=== PATIENT | female | born 1995 | race Two or more races ===

== ENCOUNTER 2023-04-02 16:25 | Emergency (ER) | payer OTHER ==
[~2023-04-02] VITALS: Ht 167.6 cm; Wt 81.6 kg
== END 2023-04-02 18:00 | disposition home or self-care (01) ==
LOC: ER 16:25
DX: J10.1 Influenza due to other identified influenza virus with other respiratory manifestations (principal); Z20.822 Contact with and (suspected) exposure to COVID-19

== ENCOUNTER 2023-04-20 11:42 | Emergency (ER) | payer OTHER ==
[~2023-04-20] VITALS: Ht 167.6 cm; Wt 86.2 kg
== END 2023-04-20 19:09 | disposition home or self-care (01) ==
LOC: ER 11:42
PROVIDERS: Nurse Practitioner Family
DX: M62.830 Muscle spasm of back (principal); M54.50 Low back pain, unspecified; N20.0 Calculus of kidney

== ENCOUNTER 2023-08-03 10:52 | Emergency (ER) | payer OTHER ==
[~2023-08-03] VITALS: Ht 167.6 cm; Wt 74.8 kg
== END 2023-08-03 12:51 | disposition home or self-care (01) ==
LOC: ER 10:53
DX: J03.80 Acute tonsillitis due to other specified organisms (principal); B96.89 Other specified bacterial agents as the cause of diseases classified elsewhere; Z20.822 Contact with and (suspected) exposure to COVID-19

== ENCOUNTER 2023-11-29 18:53 | Emergency (ER) | payer OTHER ==
[~2023-11-29] VITALS: Ht 170.2 cm; Wt 85.3 kg
[2023-11-29 21:50] LABS: HEMATOCRIT 36.8 % (36.0-45.00); HEMOGLOBIN 12.6 g/dL (12.0-15.00); MEAN CELL VOLUME 85.1 fL (80.00-100.00); MEAN CORPUSCULAR HEMOGLOBIN 29.1 pg (27.00-32.0); MEAN CORPUSCULAR HGB CONC 34.2 g/dl (32.0-36.0); PLATELET COUNT 261 K/uL (150-450); RED BLOOD COUNT 4.32 M/uL (4.00-6.00); RED CELL DISTRIBUTION WIDTH 13.5 % (11.5-14.5)
== END 2023-11-29 22:46 | disposition home or self-care (01) ==
LOC: ER 18:59
PROVIDERS: General Practice
DX: J06.9 Acute upper respiratory infection, unspecified (principal); Z20.822 Contact with and (suspected) exposure to COVID-19

== ENCOUNTER 2024-03-04 15:38 | Emergency (ER) | payer OTHER ==
[~2024-03-04] VITALS: Ht 170.2 cm; Wt 87.5 kg
[~2024-03-04 15:38] MED LIST: DICLOFENAC SODI75 MG PO; TUSNEL LIQUID178 ML PO
[2024-03-04] MEDS ORDERED: ORPHENADRINE CITRATE 30 MG/ML AMPUL IM ONE (18:15)
== END 2024-03-04 18:32 | disposition home or self-care (01) ==
LOC: ER 15:38
DX: S80.02XA Contusion of left knee, initial encounter (principal); S80.01XA Contusion of right knee, initial encounter; V19.9XXA Pedal cyclist (driver) (passenger) injured in unspecified traffic accident, initial encounter; Y93.89 Activity, other specified; Y92.89 Other specified places as the place of occurrence of the external cause; Y99.9 Unspecified external cause status

== ENCOUNTER → 2024-08-17 | Emergency (ER) | payer OTHER ==
[~2024-08-17] VITALS: Ht 170.2 cm; Wt 86.2 kg
== END | disposition left against medical advice (07) ==
LOC: ER 03:20
DX: Z53.21 Procedure and treatment not carried out due to patient leaving prior to being seen by health care provider (principal)

== ENCOUNTER → 2024-08-29 | Emergency (ER) | payer OTHER ==
[~2024-08-29] VITALS: Ht 170.2 cm; Wt 86.2 kg
[2024-08-29 09:30] LABS: HEMATOCRIT 35.5 % (36.0-45.00); HEMOGLOBIN 12.3 g/dL (12.0-15.00); MEAN CELL VOLUME 84.9 fL (80.00-100.00); MEAN CORPUSCULAR HEMOGLOBIN 29.3 pg (27.00-32.0); MEAN CORPUSCULAR HGB CONC 34.5 g/dl (32.0-36.0); PLATELET COUNT 258 K/uL (150-450); RED BLOOD COUNT 4.19 M/uL (4.00-6.00); RED CELL DISTRIBUTION WIDTH 13.9 % (11.5-14.5)
== END | disposition home or self-care (01) ==
LOC: ER 08:15
PROVIDERS: General Practice
DX: J10.1 Influenza due to other identified influenza virus with other respiratory manifestations (principal); Z20.822 Contact with and (suspected) exposure to COVID-19

== ENCOUNTER 2024-10-28 14:48 | Emergency (ER) | payer OTHER ==
[~2024-10-28] VITALS: Ht 165.1 cm; Wt 87.5 kg
[2024-10-28] MEDS ORDERED: ONDANSETRON HCL 2 MG/ML VIAL IV STA (15:24)
[2024-10-28] MEDS ORDERED: 0.9 % SODIUM CHLORIDE 1,000 ML IV STA (15:24)
[2024-10-28 16:07] LABS: HEMATOCRIT 40.7 % (36.0-45.00); HEMOGLOBIN 13.6 g/dL (12.0-15.00); MEAN CELL VOLUME 87.4 fL (80.00-100.00); MEAN CORPUSCULAR HEMOGLOBIN 29.2 pg (27.00-32.0); MEAN CORPUSCULAR HGB CONC 33.4 g/dl (32.0-36.0); PLATELET COUNT 264 K/uL (150-450); RED BLOOD COUNT 4.66 M/uL (4.00-6.00); RED CELL DISTRIBUTION WIDTH 13.1 % (11.5-14.5)
[2024-10-28] MEDS ORDERED: FAMOTIDINE/PF 20 MG/2 ML VIAL IV ONE (16:15)
[2024-10-28] MEDS ORDERED: ACETAMINOPHEN 500 MG GEL..CAP PO ONE (16:15)
[2024-10-28 16:58] LABS: CALCIUM 9.1 mg/dL (8.5-10.1); CREATININE SERUM 0.68 mg/dL (0.55-1.02); GFR 100.92; POTASSIUM 3.82 mEq/L (3.5-5.1)
== END 2024-10-28 18:56 | disposition home or self-care (01) ==
LOC: ER 14:51
PROVIDERS: Emergency Medicine
DX: K52.89 Other specified noninfective gastroenteritis and colitis (principal)

== ENCOUNTER 2025-03-20 08:09 | Emergency (ER) | payer OTHER ==
[~2025-03-20] VITALS: Ht 170.2 cm; Wt 77.1 kg
[2025-03-20] MEDS ORDERED: KETOROLAC TROMETHAMINE 30 MG VIAL IM ONE (09:15)
[2025-03-20] MEDS ORDERED: GUAIFENESIN 200 MG/10 ML BLIST.PACK PO ONE (09:15)
[2025-03-20 09:30] LABS: BASO % 0.7 % (0.1-1.2); EOS # 0.18 (0.04-0.54); EOS % 2.2 % (0.7-7.0); LYMPH # 2.75 (1.18-3.74); LYMPH % 33.9 % (19.3-53.1); MEAN PLATELET VOLUME 10.00 fl (9.4-12.4); MONO # 0.80 (0.24-0.82); MONO % 9.9 % (4.7-12.5); NEUT # 4.31 (1.56-6.13); NEUT % 53.1 % (34.0-71.1); RED CELL DISTRIBUTION WIDTH 12.4 % (11.6-14.4)
[2025-03-20 10:01] LABS: COVID-19 AG NEGATIVE (NEGATIVE)
== END 2025-03-20 11:43 | disposition home or self-care (01) ==
LOC: ER 08:09
PROVIDERS: General Practice
DX: B34.9 Viral infection, unspecified (principal); Z20.822 Contact with and (suspected) exposure to COVID-19